=== PATIENT | female | born 1960 | race Caucasian/White ===

== ENCOUNTER 2019-03-04 09:09 | Emergency (ER) | payer BC, OTHER ==
[2019-03-04] MEDS ORDERED: IBUPROFEN 400 MG TAB ONE (09:46)
[2019-03-04] MEDS ORDERED: ACETAMINOPHEN 500 MG TAB ONE (09:46)
--- NOTE | 2019-03-04 10:21 | RAD REPORT ---
EXAM DESCRIPTION: RAD - Ankle Right 3 View - 03/04/2019 10:10 am CLINICAL HISTORY: slip and fall;Pain COMPARISON: Ankle Left 3 View dated 05/03/2011 FINDINGS: Soft tissue swelling is seen about the ankle. Large posterior calcaneal spur. No fracture detected.
--- NOTE | 2019-03-04 10:24 | RAD REPORT ---
EXAM DESCRIPTION: RAD - Knee Left 3 View - 03/04/2019 10:10 am CLINICAL HISTORY: slip and fall;Pain COMPARISON: <Comparisons> FINDINGS: Fracture is seen involving the inferior pole of the patella. Adjacent soft tissue swelling is evident. No joint effusion.
--- NOTE | 2019-03-04 10:34 | RAD REPORT ---
EXAM DESCRIPTION: RAD - Knee Right 3 View - 03/04/2019 10:10 am CLINICAL HISTORY: slip and fall;Pain COMPARISON: No comparisons FINDINGS: The bones are osteopenic. No acute fracture or dislocation seen. No joint effusion evident . Mild soft tissue swelling is seen superior to the patella.
[2019-03-04] MEDS ORDERED: HYDROCODONE/APAP 7.5/325 MG TAB ONE (10:55)
--- NOTE | 2019-03-04 11:00 | EDPHYS ---
Physician Documentation [facility] Name: Laney Rojas Age: 58 yrs Sex: Female : 1960 Arrival Date: 03/04/2019 Time: 09:13 Bed 17 Private MD: ED Physician Lincoln Lao HPI: 03/04 09:40 This 58 yrs old Female presents to ER via Wheelchair with complaints of Ankle cp Swelling, Knee Pain. 03/03 08:40 Details of fall: The patient fell from an upright position, while standing. Onset: The cp symptoms/episode began/occurred 1 hour(s) ago. Associated injuries: The patient sustained left knee, painful injury, right knee, mild tenderness, right ankle, painful injury, swelling. Historical: - Allergies: 03/04 09:18 PENICILLINS; ss 09:18 Codeine; ss - PSHx: 09:18 Cholecystectomy; L hip replacment; low back; neck sx; ss - Immunization history:: Adult Immunizations up to date. - Social history:: Smoking status: Patient uses tobacco products, denies chronic smoking, but will smoke occasionally. - Ebola Screening: : Patient denies exposure to infectious person Patient denies travel to an Ebola-affected area in the 21 days before illness onset. ROS: 08:45 Constitutional: Negative for body aches, chills, fever, poor PO intake. cp 08:45 Neck: Negative for pain with movement, pain at rest, stiffness, tenderness. cp 08:45 Cardiovascular: Negative for chest pain, edema, palpitations. 08:45 Respiratory: Negative for cough, shortness of breath, wheezing. 08:45 Abdomen/GI: Negative for abdominal pain, nausea, vomiting, and diarrhea. 08:45 Back: Negative for pain at rest, pain with movement. 08:45 MS/extremity: Positive for pain, swelling, tenderness, of the left knee and right knee and right ankle, Negative for paresthesias. 08:45 Neuro: Negative for altered mental status, headache, loss of consciousness, syncope, weakness. 08:45 All other systems are negative. Exam: 09:00 Constitutional: The patient appears in no acute distress, alert, awake, non-toxic, well cp developed, well nourished, uncomfortable. 09:00 Head/Face: Normocephalic, atraumatic. cp 09:00 Eyes: Periorbital structures: appear normal, Conjunctiva: normal, no exudate, no injection, Lids and lashes: appear normal, bilaterally. 09:00 ENT: External ear(s): are unremarkable, Nose: is normal, Mouth: is normal, Posterior pharynx: Airway: no evidence of obstruction, patent. 09:00 Neck: C-spine: vertebral tenderness, is not appreciated, crepitus, is not appreciated, ROM/movement: is normal, is supple, without pain, no range of motions limitations, no meningismus, no nuchal rigidity. 09:00 Chest/axilla: Inspection: normal, Palpation: is normal, no crepitus, no tenderness. 09:00 Cardiovascular: Rate: normal, Rhythm: regular. 09:00 Respiratory: the patient does not display signs of respiratory distress, Respirations: normal, no use of accessory muscles, no retractions, no splinting, no tachypnea, labored breathing, is not present, Breath sounds: are clear throughout, no decreased breath sounds, no stridor, no wheezing. 09:00 Abdomen/GI: Inspection: abdomen appears normal, Palpation: abdomen is soft and non-tender, in all quadrants. 09:00 Back: pain, is absent, ROM is normal. 09:00 Musculoskeletal/extremity: Extremities: grossly normal except: noted in the left patella: decreased ROM, pain, tenderness, noted in the right knee: tenderness, no evidence of decreased ROM, deformity, noted in the right ankle: pain, swelling, tenderness, no evidence of decreased ROM. 09:00 Neuro: Orientation: to person, place \T\ time. Mentation: is normal, Sensation: is normal. Vital Signs: 09:18 BP 158 / 84; Pulse 94; Resp 20; Temp 96.0(O); Pulse Ox 97% on R/A; Weight 95.25 kg; Height 5 ft. 4 in. (162.56 cm); Pain 8/10; 10:30 BP 150 / 78; Pulse 85; Resp 18; Pulse Ox 100% on R/A; hj 11:25 BP 152 / 80; Pulse 89; Resp 18; Pulse Ox 98% on R/A; hj 09:18 Body Mass Index 36.05 (95.25 kg, 162.56 cm) Procedures: 11:20 Splinting: Splint applied to left knee using knee immobilizer, applied by nurse. cp Examined by me, post splint application: neurovascular intact, Patient tolerated well. 11:20 Splinting: Splint applied to right ankle using Air Cast, applied by nurse. Examined by cp me, post splint application: neurovascular intact, Patient tolerated well. MDM: 09:24 Patient medically screened. cp 10:00 Differential diagnosis: closed head injury, fracture, multiple trauma, sprain, strain. cp 10:57 Data reviewed: vital signs, nurses notes, radiologic studies, plain films, I have cp discussed the patient's presentation/case with the attending Emergency Department Physician; and as a result, I will discharge patient. 10:57 Counseling: I had a detailed discussion with the patient and/or guardian regarding: the cp historical points, exam findings, and any diagnostic results supporting the discharge/admit diagnosis, radiology results, the need for outpatient follow up, for definitive care, a orthopedic surgeon, to return to the emergency department if symptoms worsen or persist or if there are any questions or concerns that arise at home. Response to treatment: the patient's symptoms have markedly improved after treatment, and as a result, I will discharge patient. 03/04 09:26 Order name: XRAY Ankle RIGHT 3 view; Complete Time: 10:56 03/04 10:56 Interpretation: Report reviewed. 03/04 09:26 Order name: XRAY Knee RIGHT 3 view; Complete Time: 10:56 03/04 10:56 Interpretation: Report reviewed. 03/04 09:26 Order name: XRAY Knee LEFT 3 view; Complete Time: 10:56 03/04 10:31 Order name: Knee Immobilizer; Complete Time: 11:04 03/04 10:31 Order name: Crutches; Complete Time: 11:04 03/04 10:31 Order name: Aircast Ankle Splint; Complete Time: 11:04 Administered Medications: 09:35 Drug: Tylenol 1000 mg Route: PO; da2 10:33 Follow up: Response: No adverse reaction hj 09:36 Drug: Ibuprofen 800 mg Route: PO; da2 10:33 Follow up: Response: No adverse reaction hj 10:45 Not Given (Patient Refused): Hydrocodone-Acetaminophen (7.5 mg-325 mg) 1 tabs PO once hj 10:45 Drug: fentaNYL (PF) 50 mcg Route: IM; Site: right deltoid; hj 11:04 Follow up: Response: No adverse reaction; Pain is decreased hj Disposition: 11:30 Chart complete. cp 14:06 Co-signature as Attending Physician, Lincoln Lao MD. rn Disposition: 03/04/19 10:59 Discharged to Home. Impression: Fracture of patella - left, Sprain of ankle - right. - Condition is Stable. - Discharge Instructions: Ankle Sprain, Patellar Fracture, Adult. - Prescriptions for Ultram 50 mg Oral Tablet - take 1 tablet by ORAL route every 6 hours As needed; 20 tablet. Naprosyn 500 mg Oral Tablet - take 1 tablet by ORAL route 2 times per day take with food; 20 tablet. - Medication Reconciliation Form, Thank You Letter, Antibiotic Education, Prescription Opioid Use form. - Follow up: Angel Jessica MD; When: 2 - 3 days; Reason: left patella fracture. - Problem is new. - Symptoms have improved. Signatures: Dispatcher [employer] EDMS Lincoln Lao MD MD rn Smirch, Shelby, RN RN ss Joaquin, Henry, RN RN hj Page, Corey, PA PA cp Uzair, Skyler [email or web address] Corrections: (The following items were deleted from the chart) 11:24 10:59 03/04/2019 10:59 Discharged to Home. Impression: Fracture of patella - left; hj Sprain of ankle - right. Condition is Stable. Forms are Medication Reconciliation Form, Thank You Letter, Antibiotic Education, Prescription Opioid Use. Follow up: Angel Jessica; When: 2 - 3 days; Reason: left patella fracture. Problem is new. Symptoms have improved. cp
--- NOTE | 2019-03-04 11:00 | ER ---
Nurse's Notes [facility] Name: Laney Rojas Age: 58 yrs Sex: Female : 1960 Arrival Date: 03/04/2019 Time: 09:13 Bed 17 Private MD: Diagnosis: Fracture of patella-left;Sprain of ankle-right Presentation: 03/04 09:15 Presenting complaint: Patient states: Fall from standing position approximately 1 hour ss ago. Pt c/o L knee and R ankle pain. Transition of care: patient was not received from another setting of care. Onset of symptoms was March 04, 2019. Risk Assessment: Do you want to hurt yourself or someone else? Patient reports no desire to harm self or others. Initial Sepsis Screen: Does the patient meet any 2 criteria? HR > 90 bpm. Does the patient have a suspected source of infection? No. Patient's initial sepsis screen is negative. Care prior to arrival: None. 09:15 Method Of Arrival: Wheelchair ss 09:15 Acuity: LORAINE 4 ss Triage Assessment: 09:15 General: Appears in no apparent distress. uncomfortable, obese, Behavior is calm, hj cooperative, appropriate for age. Pain: Complains of pain in right leg and left leg. Historical: - Allergies: 09:18 PENICILLINS; ss 09:18 Codeine; ss - PSHx: 09:18 Cholecystectomy; L hip replacment; low back; neck sx; ss - Immunization history:: Adult Immunizations up to date. - Social history:: Smoking status: Patient uses tobacco products, denies chronic smoking, but will smoke occasionally. - Ebola Screening: : Patient denies exposure to infectious person Patient denies travel to an Ebola-affected area in the 21 days before illness onset. Screenin:15 Abuse screen: Denies threats or abuse. Denies injuries from another. Nutritional hj screening: No deficits noted. Tuberculosis screening: No symptoms or risk factors identified. Fall Risk Fall in past 12 months (25 points). Assessment: 09:15 General: Appears in no apparent distress. uncomfortable, obese, Behavior is calm, hj cooperative, appropriate for age. Pain: Complains of pain in L knee and R ankle. Neuro: Level of Consciousness is awake, alert, obeys commands, Oriented to person, place, time, situation, Appropriate for age. Cardiovascular: Capillary refill < 3 seconds Patient's skin is warm and dry. Respiratory: Airway is patent Respiratory effort is even, unlabored, Respiratory pattern is regular, symmetrical. GI: No signs and/or symptoms were reported involving the gastrointestinal system. : No signs and/or symptoms were reported regarding the genitourinary system. EENT: No signs and/or symptoms were reported regarding the EENT system. Derm: No signs and/or symptoms reported regarding the dermatologic system. Musculoskeletal: Reports pain in L knee and R ankle. 10:15 Reassessment: Patient and/or family updated on plan of care and expected duration. Pain hj level reassessed. Patient is alert, oriented x 3, equal unlabored respirations, skin warm/dry/pink. awaiting results and POC;. 11:23 Reassessment: Patient and/or family updated on plan of care and expected duration. Pain hj level reassessed. Patient is alert, oriented x 3, equal unlabored respirations, skin warm/dry/pink. Patient states symptoms have improved. 11:23 Reassessment: D/C instructions given with R ankle cast, L knee immobilizer and hj crutches;. Vital Signs: 09:18 BP 158 / 84; Pulse 94; Resp 20; Temp 96.0(O); Pulse Ox 97% on R/A; Weight 95.25 kg; ss Height 5 ft. 4 in. (162.56 cm); Pain 8/10; 10:30 BP 150 / 78; Pulse 85; Resp 18; Pulse Ox 100% on R/A; hj 11:25 BP 152 / 80; Pulse 89; Resp 18; Pulse Ox 98% on R/A; hj 09:18 Body Mass Index 36.05 (95.25 kg, 162.56 cm) ED Course: 09:13 Patient arrived in ED. hj 09:14 Christopher Calzada RN is Primary Nurse. hj 09:15 Yobani Argueta PA is PHCP. cp 09:15 Lincoln Lao MD is Attending Physician. cp 09:15 Patient has correct armband on for positive identification. Placed in gown. Bed in low hj position. Call light in reach. Side rails up X 1. Adult w/ patient. 09:17 Triage completed. ss 09:18 Arm band placed on right wrist. ss 10:12 XRAY Ankle RIGHT 3 view In Process Unspecified. EDMS 10:12 XRAY Knee RIGHT 3 view In Process Unspecified. EDMS 10:12 XRAY Knee LEFT 3 view In Process Unspecified. EDMS 10:57 Angel Jessica MD is Referral Physician. cp 11:23 No provider procedures requiring assistance completed. Patient did not have IV access hj during this emergency room visit. Administered Medications: 09:35 Drug: Tylenol 1000 mg Route: PO; da2 10:33 Follow up: Response: No adverse reaction hj 09:36 Drug: Ibuprofen 800 mg Route: PO; da2 10:33 Follow up: Response: No adverse reaction hj 10:45 Not Given (Patient Refused): Hydrocodone-Acetaminophen (7.5 mg-325 mg) 1 tabs PO once hj 10:45 Drug: fentaNYL (PF) 50 mcg Route: IM; Site: right deltoid; hj 11:04 Follow up: Response: No adverse reaction; Pain is decreased hj Outcome: 10:59 Discharge ordered by MD. cp 11:24 Discharged to home ambulatory, with crutches, with family. hj 11:24 Condition: stable 11:24 Discharge instructions given to patient, family, Instructed on discharge instructions, follow up and referral plans. medication usage, Demonstrated understanding of instructions, follow-up care, medications, Prescriptions given X 2. 11:24 Patient left the ED. hj Signatures: Dispatcher [employer] Jaye Arnold RN RN ss Joaquin, Henry, RN RN Yobani Carroll PA PA cp Acob, Skyler da2
[2019-03-04] MEDS ORDERED: FENTANYL CITR 100 MCG/2 ML ONE (11:02)
[2019-03-04 11:31] VITALS: TEMP 96
[2019-03-04 11:35] VITALS: BP 152/80; O2SAT 98
== END 2019-03-04 11:24 | disposition home or self-care (01) ==
LOC: ER 09:09
DX: S82.002A Unspecified fracture of left patella, initial encounter for closed fracture (principal); S93.401A Sprain of unspecified ligament of right ankle, initial encounter; W18.30XA Fall on same level, unspecified, initial encounter; M25.561 Pain in right knee; Z72.0 Tobacco use; Z88.5 Allergy status to narcotic agent; Z88.0 Allergy status to penicillin
CPT/HCPCS: 96372; 99283; J3010